=== PATIENT | female | born 1990 | race African-American/Black ===

== ENCOUNTER 2022-10-03 05:43 | Day surgery (SDC) | payer OTHER ==
[~2022-10-03] VITALS: Ht 165.1 cm; Wt 72.6 kg
== END 2022-10-03 20:30 | disposition home or self-care (01) ==
LOC: CIR.AMB 05:43
PROVIDERS: ATTEND Student in an Organized Health Care Education/Training Program
DX: N84.0 Polyp of corpus uteri (principal); Z20.822 Contact with and (suspected) exposure to COVID-19